=== PATIENT | male | born 1995 | race Hispanic/Latino ===

== ENCOUNTER 2023-02-03 08:16 | Emergency (ER) | payer SELFPAY ==
[2023-02-03] MEDS ORDERED: diphenhydrAMINE 25 MG CAP ONE (08:41)
[2023-02-03] MEDS ORDERED: predniSONE 20 MG TAB ONE (08:42)
== END 2023-02-03 09:10 | disposition home or self-care (01) ==
LOC: CSHERS 08:16
DX: T63.461A Toxic effect of venom of wasps, accidental (unintentional), initial encounter (principal)
CPT/HCPCS: 99282; J7512